=== PATIENT | female | born 1945 | race Caucasian/White ===

== ENCOUNTER 2016-12-22 12:10 | Emergency (ER) | payer MEDICARE ==
[2016-12-22 12:32] VITALS: BP 100/59
--- NOTE | 2016-12-22 12:59 | EDM.PDOC ---
ED HPI GENERAL MEDICAL PROBLEM - General Chief Complaint: Respiratory Problem Stated Complaint: ILLNESS Time Seen by Provider: 12/22/16 12:59 Source of Information: Reports: Patient History Limitations: Reports: No Limitations - History of Present Illness INITIAL COMMENTS - FREE TEXT/NARRATIVE: pt arrived with some sob and a bad cough. . She has been raising some yellow mucous. She does smoke 1/2 pack daily. She has a history of asthma. Onset: Gradual Duration: Day(s): Location: Reports: Chest Associated Symptoms: Reports: Shortness of Breath, Other (pt is sob with activity. ) - Related Data Allergies Allergy/AdvReac Type Severity Reaction Status Date / Time amoxicillin [From Augmentin] Allergy Other Verified 12/22/16 12:26 clavulanic acid Allergy Other Verified 12/22/16 12:26 [From Augmentin] Home Meds: Home Meds Alendronate [Fosamax] 70 mg PO Q7D@0600 12/22/16 [History] Mometasone Furoate [Asmanex] 1 puff ASDIRECTED 12/22/16 [History] Sertraline HCl [Sertraline HCl] 100 mg PO DAILY 12/22/16 [History] Past Medical History Respiratory History: Reports: Asthma, Bronchitis, Recurrent [employer] History: Reports: Psychiatric History: Reports: Depression Oncologic (Cancer) History: Reports: Basal Cell Carcinoma Social & Family History - Tobacco Use Smoking Status *Q: Current Every Day Smoker Years of Tobacco use: 60 Packs/Tins Daily: 1 - Caffeine Use Caffeine Use: Reports: Coffee - Recreational Drug Use Recreational Drug Use: No ED ROS GENERAL - Review of Systems Review Of Systems: See Below Constitutional: Reports: No Symptoms HEENT: Reports: No Symptoms Respiratory: Reports: Shortness of Breath, Other ( activity induced sob. ) Cardiovascular: Reports: No Symptoms Endocrine: Reports: No Symptoms GI/Abdominal: Reports: No Symptoms : Reports: No Symptoms Musculoskeletal: Reports: No Symptoms Skin: Reports: No Symptoms ED EXAM, GENERAL - Physical Exam Exam: See Below Free Text/Narrative:: pt arrived with a history of a cough and sob. Pt is raising yellow sputum. She is not spiking a fever. Exam Limited By: No Limitations General Appearance: Alert, Anxious, Mild Distress Ears: Normal TMs Nose: Normal Inspection Throat/Mouth: Normal Inspection Head: Atraumatic Neck: Normal Inspection Respiratory/Chest: Decreased Breath Sounds Cardiovascular: Regular Rate, Rhythm GI/Abdominal: Soft (Female) Exam: Deferred Rectal (Female) Exam: Normal Exam Back Exam: Normal Inspection Extremities: Normal Inspection Neurological: Alert, Oriented, Normal Cognition Psychiatric: Normal Affect Course - Vital Signs Last Recorded V/S: Last Vital Signs Temp 35.8 C 12/22/16 12:30 Pulse 82 12/22/16 12:30 Resp 20 12/22/16 12:30 BP 100/59 L 12/22/16 12:30 Pulse Ox 96 12/22/16 12:30 - Orders/Labs/Meds Orders: Active Orders 24 hr Category Date Time Status Chest 2V [CR] Stat Exams 12/22/16 12:58 Taken Labs: Laboratory Tests 12/22/16 12/22/16 Range/Units 13:09 13:09 WBC 7.5 (4.5-11.0) K/uL RBC 4.33 (3.30-5.50) M/uL Hgb 13.4 (12.0-15.0) g/dL Hct 40.4 (36.0-48.0) % MCV 93 (80-98) fL MCH 31 (27-31) pg MCHC 33 (32-36) % Plt Count 307 (150-400) K/uL Neut % (Auto) 61 (36-66) % Lymph % (Auto) 26 (24-44) % Cooper % (Auto) 9 H (2-6) % Eos % (Auto) 3 (2-4) % Baso % (Auto) 1 (0-1) % Sodium 139 L (140-148) mmol/L Potassium 4.4 (3.6-5.2) mmol/L Chloride 105 (100-108) mmol/L Carbon Dioxide 31 (21-32) mmol/L Anion Gap 7.4 (5.0-14.0) mmol/L BUN 12 (7-18) mg/dL Creatinine 0.7 (0.6-1.0) mg/dL Est Cr Clr Drug Dosing 71.57 mL/min Estimated GFR (MDRD) > 60 (>60) Glucose 77 (74-106) mg/dL Calcium 8.4 L (8.5-10.1) mg/dL Total Bilirubin 0.3 (0.2-1.0) mg/dL AST 18 (15-37) U/L ALT 23 (12-78) U/L Alkaline Phosphatase 78 (46-116) U/L Total Protein 7.0 (6.4-8.2) g/dL Albumin 3.5 (3.4-5.0) g/dL Globulin 3.5 (2.3-3.5) g/dL Albumin/Globulin Ratio 1.0 L (1.2-2.2) - Re-Assessments/Exams Free Text/Narrative Re-Assessment/Exam: 12/22/16 13:54 chest xray shows no infiltrate. Her wbc is normal. Her chest xray has some chronic lung changes.i 12/22/16 13:56 Departure - Departure Time of Disposition: 13:44 Disposition: Home, Self-Care 01 Condition: Fair Clinical Impression: Bronchitis - Discharge Information Referrals: Lu Paolmo MD [Primary Care Provider] - Forms: ED Department Discharge Care Plan Goals: push fluids, cool mist humidifier, zpack, use albuterol inhaler 2-3 times daily 2 puffs at a time. rtc if problems. - My Orders Last 24 Hours: My Active Orders 12/22/16 12:58 Chest 2V [CR] Stat - Assessment/Plan Last 24 Hours: My Active Orders 12/22/16 12:58 Chest 2V [CR] Stat
--- NOTE | 2016-12-24 08:54 | CR ---
Heart size within normal limits. No focal consolidation. Emphysematous change. Pulmonary vasculature within normal limits.
== END 2016-12-22 14:06 | disposition home or self-care (01) ==
LOC: JP.ED 12:10
DX: J40 Bronchitis, not specified as acute or chronic (principal); F32.9 Major depressive disorder, single episode, unspecified; F17.210 Nicotine dependence, cigarettes, uncomplicated; Z88.1 Allergy status to other antibiotic agents; Z79.899 Other long term (current) drug therapy
CPT/HCPCS: 36415; 71020; 71020-26; 80053; 85025; 99283; 99285